=== PATIENT | male | born 1945 | race Caucasian/White ===

== ENCOUNTER → 2016-09-08 | Outpatient (CLI) | payer MEDICARE ==
[2016-09-08 08:21] LABS: Basophils % (A) 0 %; CH 33.4; CHCM 34.1; Eosinophils # (A) 0.1 k/uL (0-0.7); Eosinophils % (A) 1 %; HCT 46.5 % (39.0-53.0); HDW 2.55; HGB 15.3 gm/dL (13.0-17.5); Luc # (Auto) 0.05; Luc % (Auto) 1; Lymphocytes # (A) 1.5 k/uL (1.0-4.8); Lymphocytes % (A) 27 %; MCH 32.4 pg (25.0-35.0); MCHC 32.9 g/dL (31.0-37.0); MCV 98.5 fL (80.0-100.0); Monocytes # (A) 0.3 k/uL (0-1.0); Monocytes % (A) 5 %; Neutrophils # (A) 3.7 k/uL (1.3-7.7); Neutrophils % (A) 65 %; RBC 4.72 m/uL (4.30-5.90); RDW 13.8 % (11.5-15.5); WBC 5.6 k/uL (3.8-10.6); WBC (Perox) 5.31
[2016-09-08 10:46] LABS: Erythrocyte Sedimentation Rate 8 mm/hr (0-15)
== END | disposition home or self-care (01) ==
LOC: LABWHC1 07:51
PROVIDERS: ATTEND Internal Medicine Infectious Disease
DX: M86.271 Subacute osteomyelitis, right ankle and foot (principal)
CPT/HCPCS: 36415; 85025; 85652; 86140

== ENCOUNTER → 2017-08-19 | Outpatient (CLI) | payer MEDICARE ==
[2017-08-19 08:07] LABS: Basophils % (A) 0 %; Eosinophils # (A) 0.1 k/uL (0-0.7); Eosinophils % (A) 2 %; HCT 42.1 % (39.0-53.0); HGB 14.4 gm/dL (13.0-17.5); Lymphocytes # (A) 1.4 k/uL (1.0-4.8); Lymphocytes % (A) 28 %; MCH 31.9 pg (25.0-35.0); MCHC 34.3 g/dL (31.0-37.0); Mean Platelet Volume 7.1; Monocytes # (A) 0.3 k/uL (0-1.0); Monocytes % (A) 6 %; Neutrophils # (A) 3.1 k/uL (1.3-7.7); Neutrophils % (A) 62 %; Platelet Count 195 k/uL (150-450); RBC 4.52 m/uL (4.30-5.90); RDW 13.2 % (11.5-15.5); WBC 4.9 k/uL (3.8-10.6)
[2017-08-19 08:43] LABS: Anion Gap 14 mmol/L; Blood Urea Nitrogen 28 mg/dL (9-20); Calcium 9.3 mg/dL (8.4-10.2); Carbon Dioxide 23 mmol/L (22-30); Chloride 104 mmol/L (98-107); Glucose 143 mg/dL (74-99); Potassium 4.5 mmol/L (3.5-5.1); Sodium 141 mmol/L (137-145)
[2017-08-19 08:52] LABS: Erythrocyte Sedimentation Rate 12 mm/hr (0-15)
== END | disposition home or self-care (01) ==
LOC: LABWHC1 07:27
PROVIDERS: ATTEND Internal Medicine Infectious Disease
DX: R79.89 Other specified abnormal findings of blood chemistry (principal)
CPT/HCPCS: 36415; 80048; 85025; 85652

== ENCOUNTER → 2018-02-28 | Outpatient (CLI) | payer MEDICARE ==
[2018-02-28 11:30] LABS: Basophils % (A) 0 %; Eosinophils # (A) 0.1 k/uL (0-0.7); Eosinophils % (A) 1 %; HCT 45.1 % (39.0-53.0); Lymphocytes # (A) 1.2 k/uL (1.0-4.8); Lymphocytes % (A) 23 %; MCH 31.7 pg (25.0-35.0); MCHC 33.3 g/dL (31.0-37.0); MCV 95.2 fL (80.0-100.0); Mean Platelet Volume 6.6; Monocytes # (A) 0.2 k/uL (0-1.0); Monocytes % (A) 4 %; Neutrophils # (A) 3.6 k/uL (1.3-7.7); Neutrophils % (A) 71 %; Platelet Count 194 k/uL (150-450); RBC 4.74 m/uL (4.30-5.90); RDW 13.2 % (11.5-15.5); WBC 5.1 k/uL (3.8-10.6)
[2018-02-28 13:23] LABS: Erythrocyte Sedimentation Rate 8 mm/hr (0-15)
[2018-02-28 18:14] LABS: Albumin 4.5 g/dL (3.80-4.90); Albumin/Globulin Ratio 2.65 (1.20-2.10); Anion Gap 7.1 mmol/L (4.00-12.00); Calcium 9.3 mg/dL (8.7-10.3); Carbon Dioxide 24.9 mmol/L (21.6-31.8); Globulin 1.7 g/dL (2.1-3.7); Potassium 4.6 mmol/L (3.5-5.5); Total Bilirubin 0.7 mg/dL (0.2-1.2); Total Protein 6.2 g/dL (6.2-8.2)
== END ==
LOC: LABWHC1 09:53
PROVIDERS: ATTEND Internal Medicine Infectious Disease
DX: M19.90 Unspecified osteoarthritis, unspecified site (principal); Z87.39 Personal history of other diseases of the musculoskeletal system and connective tissue
CPT/HCPCS: 36415; 80053; 85025; 85652

== ENCOUNTER → 2018-08-29 | Outpatient (CLI) | payer MEDICARE ==
[2018-08-29 08:35] LABS: Basophils % (A) 0 %; Eosinophils # (A) 0.1 k/uL (0-0.7); Eosinophils % (A) 2 %; HCT 40.4 % (39.0-53.0); HGB 13.3 gm/dL (13.0-17.5); Lymphocytes # (A) 1.3 k/uL (1.0-4.8); Lymphocytes % (A) 23 %; MCH 30.6 pg (25.0-35.0); MCHC 32.9 g/dL (31.0-37.0); MCV 92.9 fL (80.0-100.0); Mean Platelet Volume 7.1; Monocytes # (A) 0.3 k/uL (0-1.0); Monocytes % (A) 5 %; Neutrophils # (A) 3.9 k/uL (1.3-7.7); Neutrophils % (A) 69 %; Platelet Count 230 k/uL (150-450); RBC 4.35 m/uL (4.30-5.90); WBC 5.7 k/uL (3.8-10.6)
[2018-08-29 10:11] LABS: Erythrocyte Sedimentation Rate 14 mm/hr (0-15)
[2018-08-29 16:56] LABS: African American GFR (CKD) 97.2 (60.0-200.0); Albumin 4.5 g/dL (3.80-4.90); Albumin/Globulin Ratio 2.65 (1.60-3.17); Anion Gap 10.5 mmol/L (4.00-12.00); Calcium 9.3 mg/dL (8.7-10.3); Carbon Dioxide 26.5 mmol/L (21.6-31.8); Globulin 1.7 g/dL (1.6-3.3); Total Bilirubin 0.6 mg/dL (0.3-1.2); Total Protein 6.2 g/dL (6.2-8.2)
== END | disposition home or self-care (01) ==
LOC: LABWHC1 08:03
PROVIDERS: ATTEND Internal Medicine Infectious Disease
DX: M19.90 Unspecified osteoarthritis, unspecified site (principal); Z87.39 Personal history of other diseases of the musculoskeletal system and connective tissue
CPT/HCPCS: 36415; 80053; 85025; 85652

== ENCOUNTER → 2019-02-27 | Outpatient (CLI) | payer MEDICARE ==
[2019-02-27 09:11] LABS: Basophils % (A) 0 %; Eosinophils # (A) 0.1 k/uL (0-0.7); Eosinophils % (A) 1 %; HCT 43.1 % (39.0-53.0); HGB 14.8 gm/dL (13.0-17.5); Lymphocytes # (A) 1.6 k/uL (1.0-4.8); Lymphocytes % (A) 29 %; MCH 31.9 pg (25.0-35.0); MCHC 34.3 g/dL (31.0-37.0); MCV 92.9 fL (80.0-100.0); Mean Platelet Volume 6.3; Monocytes # (A) 0.3 k/uL (0-1.0); Monocytes % (A) 5 %; Neutrophils # (A) 3.4 k/uL (1.3-7.7); Neutrophils % (A) 63 %; Platelet Count 208 k/uL (150-450); RBC 4.63 m/uL (4.30-5.90); RDW 12.6 % (11.5-15.5); WBC 5.3 k/uL (3.8-10.6)
[2019-02-27 09:39] LABS: Erythrocyte Sedimentation Rate 8 mm/hr (0-15)
[2019-02-27 17:57] LABS: ALT 65 U/L (10-49); AST 56 U/L (14-35); Alkaline Phosphatase 124 U/L (41-126); C Reactive Protein <0.4 mg/dL (0.0-0.8); Calcium 9.5 mg/dL (8.7-10.3); Carbon Dioxide 27.2 mmol/L (21.6-31.8); Chloride 100 mmol/L (96-109); Globulin 1.8 g/dL (1.6-3.3); Glucose 159 mg/dL (70-110); Non-African American GFR(CKD) 73.3 (60.0-200.0); Potassium 4.2 mmol/L (3.5-5.5); Sodium 137 mmol/L (135-145); Total Bilirubin 0.7 mg/dL (0.3-1.2); Total Protein 6.3 g/dL (6.2-8.2)
== END | disposition home or self-care (01) ==
LOC: LABWHC1 08:10
PROVIDERS: ATTEND Internal Medicine Infectious Disease
DX: M86.3 Chronic multifocal osteomyelitis (principal); Z88.2 Allergy status to sulfonamides
CPT/HCPCS: 36415; 80053; 85025; 85652; 86140

== ENCOUNTER → 2019-09-11 | Outpatient (CLI) | payer MEDICARE ==
[2019-09-11 10:35] LABS: Basophils % (A) 0 %; Eosinophils # (A) 0.1 k/uL (0-0.7); Eosinophils % (A) 1 %; HCT 42.8 % (39.0-53.0); HGB 14.7 gm/dL (13.0-17.5); Lymphocytes # (A) 1.1 k/uL (1.0-4.8); Lymphocytes % (A) 22 %; MCH 32.9 pg (25.0-35.0); MCHC 34.3 g/dL (31.0-37.0); Mean Platelet Volume 6.9; Monocytes # (A) 0.2 k/uL (0-1.0); Monocytes % (A) 4 %; Neutrophils # (A) 3.6 k/uL (1.3-7.7); Neutrophils % (A) 72 %; Platelet Count 181 k/uL (150-450); RBC 4.46 m/uL (4.30-5.90); RDW 13.7 % (11.5-15.5)
[2019-09-11 15:00] LABS: Erythrocyte Sedimentation Rate 9 mm/hr (0-15)
[2019-09-11 16:04] LABS: ALT 29 U/L (10-49); AST 31 U/L (14-35); Albumin/Globulin Ratio 2.37 (1.60-3.17); Alkaline Phosphatase 103 U/L (41-126); C Reactive Protein <0.4 mg/dL (0.0-0.8); Calcium 9.2 mg/dL (8.7-10.3); Carbon Dioxide 28.7 mmol/L (21.6-31.8); Chloride 106 mmol/L (96-109); Globulin 1.9 g/dL (1.6-3.3); Glucose 201 mg/dL (70-110); Non-African American GFR(CKD) 73.3 (60.0-200.0); Potassium 4.2 mmol/L (3.5-5.5); Sodium 142 mmol/L (135-145); Total Bilirubin 0.9 mg/dL (0.3-1.2); Total Protein 6.4 g/dL (6.2-8.2)
== END ==
LOC: LABWHC1 09:28
PROVIDERS: ATTEND Internal Medicine Infectious Disease
DX: M00.9 Pyogenic arthritis, unspecified (principal)
CPT/HCPCS: 36415; 80053; 85025; 85652; 86140

== ENCOUNTER → 2020-02-22 | Outpatient (CLI) | payer MEDICARE ==
[2020-02-22 10:08] LABS: Basophils % (A) 0 %; Eosinophils # (A) 0.1 k/uL (0-0.7); Eosinophils % (A) 2 %; HCT 44.4 % (39.0-53.0); HGB 15.2 gm/dL (13.0-17.5); Lymphocytes # (A) 1.1 k/uL (1.0-4.8); Lymphocytes % (A) 21 %; MCH 32.4 pg (25.0-35.0); MCHC 34.3 g/dL (31.0-37.0); MCV 94.4 fL (80.0-100.0); Mean Platelet Volume 6.5; Monocytes # (A) 0.3 k/uL (0-1.0); Monocytes % (A) 5 %; Neutrophils # (A) 3.8 k/uL (1.3-7.7); Neutrophils % (A) 71 %; Platelet Count 193 k/uL (150-450); RDW 12.7 % (11.5-15.5); WBC 5.3 k/uL (3.8-10.6)
[2020-02-22 12:55] LABS: Erythrocyte Sedimentation Rate 5 mm/hr (0-15)
[2020-02-22 16:03] LABS: ALT 23 U/L (10-49); AST 18 U/L (14-35); African American GFR (CKD) 84.4 (60.0-200.0); Albumin/Globulin Ratio 2.37 (1.60-3.17); Alkaline Phosphatase 116 U/L (41-126); C Reactive Protein <0.4 mg/dL (0.0-0.8); Calcium 9.5 mg/dL (8.7-10.3); Carbon Dioxide 27.7 mmol/L (21.6-31.8); Chloride 104 mmol/L (96-109); Globulin 1.9 g/dL (1.6-3.3); Glucose 196 mg/dL (70-110); Non-African American GFR(CKD) 72.8 (60.0-200.0); Potassium 4.3 mmol/L (3.5-5.5); Sodium 140 mmol/L (135-145); Total Bilirubin 0.8 mg/dL (0.2-1.2); Total Protein 6.4 g/dL (6.2-8.2)
== END | disposition home or self-care (01) ==
LOC: LABWHC1 08:40
PROVIDERS: ATTEND Internal Medicine Infectious Disease
DX: M19.90 Unspecified osteoarthritis, unspecified site (principal)
CPT/HCPCS: 36415; 80053; 85025; 85652; 86140

== ENCOUNTER → 2020-08-14 | Outpatient (CLI) | payer MEDICARE ==
[2020-08-14 16:10] LABS: Basophils # (A) 0.02 X 10*3/uL (0.00-0.10); Basophils % (A) 0.4 %; Eosinophils # (A) 0.05 X 10*3/uL (0.04-0.35); Eosinophils % (A) 0.9 %; HCT 45.8 % (39.6-50.0); HGB 15.4 g/dL (13.0-17.0); Lymphocytes # (A) 1.33 X 10*3/uL (0.90-5.00); Lymphocytes % (A) 23.9 %; MCH 31.9 pg (27.0-32.0); MCHC 33.6 g/dL (32.0-37.0); MCV 94.8 fL (80.0-97.0); Mean Platelet Volume 9.4 fL (9.5-12.2); Monocytes # (A) 0.37 X 10*3/uL (0.20-1.00); Monocytes % (A) 6.6 %; Neutrophils # (A) 3.77 X 10*3/uL (1.80-7.70); Neutrophils % (A) 67.7 %; Platelet Count 187 X 10*3/uL (140-440); RBC 4.83 X 10*6/uL (4.40-5.60); RDW 13.1 % (11.5-14.5); WBC 5.57 X 10*3/uL (4.50-10.00)
[2020-08-14 17:46] LABS: Erythrocyte Sedimentation Rate 7 mm/Hr (0-20)
[2020-08-14 22:47] LABS: ALT 21 U/L (10-49); AST 17 U/L (14-35); African American GFR (CKD) 84.4 (60.0-200.0); Albumin/Globulin Ratio 2.19 (1.60-3.17); Alkaline Phosphatase 110 U/L (41-126); C Reactive Protein <0.4 mg/dL (0.0-0.8); Calcium 9.8 mg/dL (8.7-10.3); Carbon Dioxide 22.2 mmol/L (21.6-31.8); Chloride 107 mmol/L (96-109); Globulin 2.1 g/dL (1.6-3.3); Glucose 126 mg/dL (70-110); Non-African American GFR(CKD) 72.8 (60.0-200.0); Potassium 4.7 mmol/L (3.5-5.5); Sodium 141 mmol/L (135-145); Total Protein 6.7 g/dL (6.2-8.2)
== END ==
LOC: LABWHC1 07:53
PROVIDERS: ATTEND Internal Medicine Infectious Disease
DX: M19.90 Unspecified osteoarthritis, unspecified site (principal)
CPT/HCPCS: 36415; 80053; 85025; 85652; 86140

== ENCOUNTER → 2021-02-19 | Outpatient (CLI) | payer MEDICARE ==
[2021-02-19 15:37] LABS: Basophils # (A) 0.01 X 10*3/uL (0.00-0.10); Basophils % (A) 0.2 %; Eosinophils # (A) 0.09 X 10*3/uL (0.04-0.35); Eosinophils % (A) 1.9 %; HCT 43.8 % (39.6-50.0); HGB 14.7 g/dL (13.0-17.0); Lymphocytes # (A) 1.11 X 10*3/uL (0.90-5.00); Lymphocytes % (A) 23.7 %; MCH 31.8 pg (27.0-32.0); MCHC 33.6 g/dL (32.0-37.0); MCV 94.8 fL (80.0-97.0); Mean Platelet Volume 9.7 fL (9.5-12.2); Monocytes # (A) 0.32 X 10*3/uL (0.20-1.00); Monocytes % (A) 6.8 %; Neutrophils # (A) 3.12 X 10*3/uL (1.80-7.70); Neutrophils % (A) 66.8 %; Platelet Count 173 X 10*3/uL (140-440); RBC 4.62 X 10*6/uL (4.40-5.60); RDW 13.6 % (11.5-14.5); WBC 4.68 X 10*3/uL (4.50-10.00)
[2021-02-19 16:04] LABS: African American GFR (CKD) 83.8 (60.0-200.0); Anion Gap 16.6 mmol/L (10.00-18.00); BUN/Creat Ratio 21.4 Ratio (12.00-20.00); Blood Urea Nitrogen 21.4 mg/dL (9.0-27.0); C Reactive Protein 0.5 mg/dL (0.00-0.80); Calcium 9.3 mg/dL (8.7-10.3); Carbon Dioxide 20.4 mmol/L (20.0-27.5); Non-African American GFR(CKD) 72.3 (60.0-200.0); Potassium 4.4 mmol/L (3.5-5.5)
[2021-02-19 18:04] LABS: Erythrocyte Sedimentation Rate 10 mm/Hr (0-20)
== END | disposition home or self-care (01) ==
LOC: LABWHC1 08:06
PROVIDERS: ATTEND Internal Medicine Infectious Disease
DX: M89.8X7 Other specified disorders of bone, ankle and foot (principal)
CPT/HCPCS: 36415; 80048; 85025; 85652; 86140

== ENCOUNTER → 2021-08-15 | Outpatient (CLI) | payer MEDICARE ==
[2021-08-15 14:39] LABS: Basophils # (A) 0.02 X 10*3/uL (0.00-0.10); Basophils % (A) 0.4 %; Eosinophils # (A) 0.06 X 10*3/uL (0.04-0.35); Eosinophils % (A) 1.1 %; HCT 42.4 % (39.6-50.0); HGB 14.7 g/dL (13.0-17.0); Immature Grans, Automated 0.4 %; Lymphocytes % (A) 18.9 %; MCH 32.4 pg (27.0-32.0); MCHC 34.7 g/dL (32.0-37.0); MCV 93.4 fL (80.0-97.0); Mean Platelet Volume 9.4 fL (9.5-12.2); Monocytes # (A) 0.34 X 10*3/uL (0.20-1.00); Monocytes % (A) 6.4 %; NRBC Per 100 WBC 0 /100 WBCS (0.0-0.0); Neutrophils # (A) 3.84 X 10*3/uL (1.80-7.70); Neutrophils % (A) 72.8 %; Platelet Count 174 X 10*3/uL (140-440); RBC 4.54 X 10*6/uL (4.40-5.60); RDW 12.9 % (11.5-14.5); WBC 5.28 X 10*3/uL (4.50-10.00)
[2021-08-15 14:57] LABS: African American GFR (CKD) 83.8 (60.0-200.0); Anion Gap 14.3 mmol/L (10.00-18.00); BUN/Creat Ratio 20.7 Ratio (12.00-20.00); Blood Urea Nitrogen 20.7 mg/dL (9.0-27.0); C Reactive Protein 0.4 mg/dL (0.00-0.80); Calcium 9.3 mg/dL (8.7-10.3); Carbon Dioxide 25.7 mmol/L (20.0-27.5); Non-African American GFR(CKD) 72.3 (60.0-200.0); Potassium 3.7 mmol/L (3.5-5.5)
[2021-08-15 15:49] LABS: Erythrocyte Sedimentation Rate 12 mm/Hr (0-20)
== END | disposition home or self-care (01) ==
LOC: LABWHC1 07:47
PROVIDERS: ATTEND Internal Medicine Infectious Disease
DX: B67 Echinococcosis (principal)
CPT/HCPCS: 36415; 80048; 85025; 85652; 86140

== ENCOUNTER 2021-09-08 08:32 | Emergency (ER) | payer MEDICARE ==
[2021-09-08 08:39] VITALS: RESP 18
--- NOTE | 2021-09-08 08:59 | ED ---
General Adult HPI - General Chief complaint: Back Pain/Injury Stated complaint: fall Time Seen by Provider: 09/08/21 08:35 Source: patient, RN notes reviewed, old records reviewed Mode of arrival: ambulatory Limitations: no limitations - History of Present Illness Initial comments: 76-year-old presenting with mid back pain after a fall which occurred yesterday. Patient was in a lawn chair, had fall off of an 18 inch DAC onto his back. There may have been minor head injury, no anticoagulation, no loss consciousness. Patient denies extremity injury. - Related Data Home Medications Medication Instructions Recorded Confirmed Aspirin EC [Ecotrin Low Dose] 81 mg PO DAILY 09/08/21 09/08/21 Atorvastatin [Lipitor] 40 mg PO HS 09/08/21 09/08/21 Chlorthalidone 50 mg PO DAILY 09/08/21 09/08/21 Glimepiride [Amaryl] 4 mg PO [id number] 09/08/21 09/08/21 Metoprolol Succinate [Toprol XL] 150 mg PO DAILY 09/08/21 09/08/21 Multivitamins, Thera [Multivitamin 1 tab PO DAILY 09/08/21 09/08/21 (formulary)] Olmesartan [Benicar] 40 mg PO DAILY 09/08/21 09/08/21 Lachine-3/Dha/Epa/Fish Oil [Fish Oil 1 cap PO DAILY 09/08/21 09/08/21 1,000 mg Softgel] metFORMIN HCL 1,000 mg PO BID 09/08/21 09/08/21 Allergies Allergy/AdvReac Type Severity Reaction Status Date / Time Sulfa (Sulfonamide Allergy Unknown Verified 09/08/21 10:20 Antibiotics) Childhood Review of Systems ROS Statement: Those systems with pertinent positive or pertinent negative responses have been documented in the HPI. ROS Other: All systems not noted in ROS Statement are negative. Past Medical History Past Medical History: Diabetes Mellitus, Hyperlipidemia, Hypertension History of Any Multi-Drug Resistant Organisms: None Reported Past Surgical History: Orthopedic Surgery, Tonsillectomy Past Psychological History: No Psychological Hx Reported Smoking Status: Never smoker Past Alcohol Use History: None Reported Past Drug Use History: None Reported General Exam Limitations: no limitations General appearance: alert, in no apparent distress Head exam: Present: atraumatic, normocephalic Eye exam: Present: normal appearance, PERRL ENT exam: Present: normal exam Neck exam: Present: normal inspection. Absent: tenderness, meningismus Respiratory exam: Present: normal lung sounds bilaterally. Absent: respiratory distress, wheezes Cardiovascular Exam: Present: regular rate, normal rhythm GI/Abdominal exam: Present: soft. Absent: distended, tenderness Extremities exam: Present: normal inspection, normal capillary refill. Absent: calf tenderness Back exam: Present: vertebral tenderness (Midthoracic) Neurological exam: Present: alert, oriented X3, CN II-XII intact. Absent: motor sensory deficit Psychiatric exam: Present: normal affect, normal mood Skin exam: Present: warm, dry, intact. Absent: cyanosis, diaphoretic Course Vital Signs 09/08/21 08:33 Temperature 97.9 F Pulse Rate 76 Respiratory 18 Rate Blood Pressure 192/86 O2 Sat by Pulse 97 Oximetry - Reevaluation(s) Reevaluation #1: 09/08/21 12:02 Plain transfer secondary to delay in imaging. Medical Decision Making - Medical Decision Making 76-year-old male with upper back pain from a fall which occurred yesterday afternoon around 5 PM. There was minor head trauma without loss consciousness. Workup was initiated emergency department. Including chest x-ray, thoracic spine x-ray and CT brain and C-spine. The chest and thoracic spine x-rays are negative for traumatic injury. Head CT shows bifrontal subdural and right traumatic subarachnoid hemorrhage without midline shift. Patient is well- appearing with minimal headache, no focal findings. He will require observation at a facility with neurosurgery available. I did discuss case with [facility] ER physician Dr. Cha who will accept transfer. IV established and laboratory studies are pending currently. Critical Care Time Critical Care Time: Yes Total Critical Care Time: 35 Disposition Clinical Impression: Subdural hematoma, Subarachnoid hematoma Disposition: OTHER INSTITUTION NOT DEFINED Condition: Serious Is patient prescribed a controlled substance at d/c from ED?: No Referrals: Harsh Lorenz DO [Primary Care Provider] - 1-2 days Time of Disposition: 12:03 - Out of Hospital Transfer - Req. Specs Out of Hospital Transfer - Requested Specifics: Other Emergency Center (Transfer to [facility])
--- NOTE | 2021-09-08 10:26 | CT ---
EXAMINATION TYPE: CT brain christiane rahman DATE OF EXAM: 09/08/2021 COMPARISON: None available HISTORY: Fall CT DLP: 1949.3 mGycm Automated exposure control for dose reduction was used. TECHNIQUE: CT scan of the head and cervical spine are performed without contrast. FINDINGS: Brain: Left frontoparietal isodense to slightly hyperdense subdural hematoma measuring up to 10 mm, possibly representing acute to subacute hematoma. Smaller right frontoparietal heterogeneous subdural hematom a measuring up to 6 mm, possibly representing acute on top of chronic hematoma. Associated scattered areas of subarachnoid hemorrhage seen in the right frontal, right parietal and right occipital lobes. Suspected minimal subdural bleeding along the tentorium as well as along the posterior aspect of the falx. No gross acute cortical infarct. No midline shift, herniation or ventriculomegaly. Unremarkable basal cisterns, sella and CP angles. No gross space-occupying lesion. No gross orbital abnormality. Clear visualized paranasal sinuses and mastoid air cells. No definite acute calvarial bone fracture identif ied. Cervical spine: Preserved cervical curvature. No significant anterolisthesis or retrolisthesis. No definite vertebral body collapse or acute displaced fracture. Unremarkable atlantoaxial and atlantooccipital articulati ons. No facet dislocation. Degenerative changes of the cervical and upper thoracic spine with multilevel opposing endplate osteo phytosis, extensive anterior and posterior longitudinal calcification, bridging osteophytosis with mu ltilevel facet, costovertebral costotransverse fusion. This could be related to ankylosing spondyliti s. Other spondyloarthropathy cannot be excluded. Marked degenerative/arthritic changes of the sternoclavicular joints. Multilevel neural foraminal jyothi nosis. Slightly prominent right lingual tonsil. Arterial atherosclerotic calcifications. Fatty infilt ration of the neck muscles, myositis cannot be excluded. COPD changes are seen in the visualized port ion of the lungs. No paraspinal lesion. IMPRESSION: 1. Intracranial subarachnoid hemorrhage and subdural hematomas as detailed above, possibly posttrauma tic. Recommend clinical correlation and neurosurgery consultation. 2. No acute traumatic bony injury of the cervical spine. 3. Suspected ankylosing spondylitis versus other spondyloarthropathy, for clinical correlation and fu rther workup if not already known. Other multiple findings as described above.
--- NOTE | 2021-09-08 11:16 | XR ---
EXAMINATION TYPE: XR chest 2V DATE OF EXAM: 09/08/2021 COMPARISON: NONE HISTORY: Trauma and pain TECHNIQUE: Frontal and lateral views of the chest are obtained on 3 images. FINDINGS: There is no focal air space opacity, pleural effusion, or pneumothorax seen. The cardiac silhouette size is within normal limits. Biapical pleural thickening is present. There is dense. The osseous structures are intact and there is a spinal curvature, suspect ankylosing spondylitis. IMPRESSION: No acute cardiopulmonary process.
--- NOTE | 2021-09-08 11:34 | XR ---
EXAMINATION TYPE: XR thoracic spine 2V DATE OF EXAM: 09/08/2021 COMPARISON: None HISTORY: Pain, fall TECHNIQUE: 4 view thoracic spine FINDINGS: There are 12 thoracic type vertebral bodies. Pedicles are intact. Scoliosis is present with convexity to the left centered at the T9 level. IMPRESSION: 1. No acute osseous abnormalities thoracic spine
[2021-09-08 12:06] LABS: Basophils % (A) 0 %; Eosinophils # (A) 0.1 k/uL (0-0.7); Eosinophils % (A) 1 %; HCT 43.5 % (39.0-53.0); HGB 15.3 gm/dL (13.0-17.5); Lymphocytes % (A) 11 %; MCHC 35.1 g/dL (31.0-37.0); MCV 96.9 fL (80.0-100.0); Mean Platelet Volume 7.2; Monocytes # (A) 0.4 k/uL (0-1.0); Monocytes % (A) 5 %; Neutrophils # (A) 7.3 k/uL (1.3-7.7); Neutrophils % (A) 83 %; Platelet Count 191 k/uL (150-450); RBC 4.49 m/uL (4.30-5.90); RDW 13.6 % (11.5-15.5); WBC 8.8 k/uL (3.8-10.6)
[2021-09-08] MEDS ORDERED: HYDROmorphone 0.5 MG/0.5 ML SYRINGE IVP STA (12:10)
[2021-09-08 12:17] LABS: INR 0.9 (<1.2); Partial Thromboplastin Time 24.7 sec (22.0-30.0); Prothrombin Time 10.3 sec (9.0-12.0)
[2021-09-08 12:32] LABS: Albumin 4.5 g/dL (3.5-5.0); Calcium 9.7 mg/dL (8.4-10.2); Potassium 4.1 mmol/L (3.5-5.1); Total Protein 7.2 g/dL (6.3-8.2)
[2021-09-08 12:57] LABS: Appearance,Urine Clear (Clear); Bacteria,Urine Occasional /hpf; Bilirubin,Urine Negative (Negative); Blood,Urine Trace (Negative); Color,Urine Yellow; Glucose,Urine (UA) Trace (Negative); Ketones,Urine Negative (Negative); Leukocyte Esterase,Urine Trace (Negative); Mucus,Urine Rare /hpf; Nitrite,Urine Negative (Negative); PH, Urine 5.5 (5.0-8.0); Protein,Urine 2+ (Negative); RBC,Urine 2 /hpf (0-5); Specific Gravity,Urine 1.019 (1.001-1.035); Squamous Epithelial Cell,Urine <1 /hpf (0-4); Urobilinogen,Urine <2.0 mg/dL (<2.0); WBC,Urine 14 /hpf (0-5)
[2021-09-08 13:41] VITALS: BP 167/87; PULSE 64; TEMP 97.5
== END 2021-09-08 13:20 | disposition other institution (70) ==
LOC: EC 08:32
DX: S06.5X9A Traumatic subdural hemorrhage with loss of consciousness of unspecified duration, initial encounter (principal); E11.9 Type 2 diabetes mellitus without complications; E78.5 Hyperlipidemia, unspecified; I10 Essential (primary) hypertension; Z88.2 Allergy status to sulfonamides; W19.XXXA Unspecified fall, initial encounter
CPT/HCPCS: 36415; 80053; 85025; 85610; 85730; 81001; 72070; 71046; 72125; 70450; 96374; 99285; J1170

== ENCOUNTER → 2022-08-20 | Outpatient (CLI) | payer MEDICARE ==
[2022-08-20 16:02] LABS: Basophils # (A) 0.01 X 10*3/uL (0.00-0.10); Basophils % (A) 0.2 %; Eosinophils # (A) 0.03 X 10*3/uL (0.04-0.35); Eosinophils % (A) 0.5 %; HCT 42.4 % (39.6-50.0); Immature Grans, Automated 0.2 %; Lymphocytes # (A) 1.44 X 10*3/uL (0.90-5.00); Lymphocytes % (A) 25.3 %; MCH 32.9 pg (27.0-32.0); MCHC 35.4 g/dL (32.0-37.0); Mean Platelet Volume 9.2 fL (9.5-12.2); Monocytes # (A) 0.41 X 10*3/uL (0.20-1.00); Monocytes % (A) 7.2 %; NRBC Per 100 WBC 0 /100 WBCS (0.0-0.0); Neutrophils # (A) 3.79 X 10*3/uL (1.80-7.70); Neutrophils % (A) 66.6 %; Platelet Count 152 X 10*3/uL (140-440); RBC 4.56 X 10*6/uL (4.40-5.60); RDW 13.1 % (11.5-14.5); WBC 5.69 X 10*3/uL (4.50-10.00)
[2022-08-20 16:07] LABS: African American GFR (CKD) 94.5 (60.0-200.0); BUN/Creat Ratio 24.89 Ratio (12.00-20.00); Blood Urea Nitrogen 22.4 mg/dL (9.0-27.0); C Reactive Protein <0.30 mg/dL (0.00-0.80); Calcium 9.8 mg/dL (8.7-10.3); Carbon Dioxide 27.4 mmol/L (20.0-27.5); Chloride 100 mmol/L (96-109); Glucose 135 mg/dL (70-110); Non-African American GFR(CKD) 81.5 (60.0-200.0); Potassium 3.8 mmol/L (3.5-5.5); Sodium 140 mmol/L (135-145)
[2022-08-20 16:13] LABS: Erythrocyte Sedimentation Rate 7 mm/Hr (0-20)
== END | disposition home or self-care (01) ==
LOC: LABWHC1 10:40
PROVIDERS: ATTEND Internal Medicine Infectious Disease
DX: M01.X71 Direct infection of right ankle and foot in infectious and parasitic diseases classified elsewhere (principal)
CPT/HCPCS: 36415; 80048; 85025; 85652; 86140

== ENCOUNTER → 2023-05-24 | Outpatient (CLI) | payer MEDICARE ==
[2023-05-24 11:35] LABS: Blood Urea Nitrogen 22.3 mg/dL (9.0-27.0); C Reactive Protein <0.30 mg/dL (0.00-0.80); Calcium 9.9 mg/dL (8.7-10.3); Carbon Dioxide 30.1 mmol/L (21.6-31.8); Chloride 101 mmol/L (96-109); Glucose 154 mg/dL (70-110); Potassium 4.2 mmol/L (3.5-5.5); Sodium 143 mmol/L (135-145)
[2023-05-24 11:38] LABS: Basophils # (A) 0.01 X 10*3/uL (0.00-0.10); Basophils % (A) 0.2 %; Eosinophils # (A) 0.07 X 10*3/uL (0.04-0.35); Eosinophils % (A) 1.4 %; HCT 45.3 % (39.6-50.0); HGB 15.4 g/dL (13.0-17.0); Lymphocytes # (A) 1.51 X 10*3/uL (0.90-5.00); Lymphocytes % (A) 30.3 %; MCH 31.5 pg (27.0-32.0); MCV 92.6 FL (80.0-97.0); Mean Platelet Volume 9.5 FL (9.5-12.2); NRBC Per 100 WBC 0 X 10*3/uL (0.00-0.01); Neutrophils # (A) 3.07 X 10*3/uL (1.80-7.70); Neutrophils % (A) 61.7 %; Platelet Count 155 X 10*3/uL (140-440); RBC 4.89 X 10*6/uL (4.40-5.60); RDW 13.2 % (11.5-14.5); WBC 4.98 X 10*3/uL (4.50-10.00)
[2023-05-24 11:52] LABS: Erythrocyte Sedimentation Rate 9 mm/Hr (0-20)
== END | disposition home or self-care (01) ==
LOC: LABWHC1 07:32
PROVIDERS: ATTEND Internal Medicine Infectious Disease
DX: Z00.00 Encounter for general adult medical examination without abnormal findings (principal); M86.171 Other acute osteomyelitis, right ankle and foot
CPT/HCPCS: 36415; 80048; 85025; 85652; 86140

== ENCOUNTER → 2024-02-28 | Outpatient (CLI) | payer MEDICARE ==
[2024-02-28 14:49] LABS: Basophils # (A) 0.02 X 10*3/uL (0.00-0.10); Basophils % (A) 0.3 %; Eosinophils # (A) 0.07 X 10*3/uL (0.04-0.35); Eosinophils % (A) 1.1 %; HCT 43.1 % (39.6-50.0); HGB 14.6 g/dL (13.0-17.0); Lymphocytes # (A) 1.55 X 10*3/uL (0.90-5.00); Lymphocytes % (A) 25.1 %; MCH 32.4 pg (27.0-32.0); MCHC 33.9 g/dL (32.0-37.0); MCV 95.6 FL (80.0-97.0); Mean Platelet Volume 9.8 FL (9.5-12.2); Monocytes % (A) 6.5 %; NRBC Per 100 WBC 0 X 10*3/uL (0.00-0.01); Neutrophils # (A) 4.09 X 10*3/uL (1.80-7.70); Neutrophils % (A) 66.4 %; Platelet Count 174 X 10*3/uL (140-440); RBC 4.51 X 10*6/uL (4.40-5.60); RDW 12.9 % (11.5-14.5); WBC 6.17 X 10*3/uL (4.50-10.00)
[2024-02-28 15:07] LABS: ALT 33 U/L (10-49); AST 35 U/L (14-35); Albumin 4.2 g/dL (3.8-4.9); Alkaline Phosphatase 110 U/L (41-126); BUN/Creat Ratio 23.36 Ratio (12.00-20.00); Blood Urea Nitrogen 25.7 mg/dL (9.0-27.0); C Reactive Protein <0.30 mg/dL (0.00-0.80); Calcium 9.1 mg/dL (8.7-10.3); Carbon Dioxide 27.6 mmol/L (21.6-31.8); Chloride 102 mmol/L (96-109); Globulin 2.1 g/dL (1.6-3.3); Glucose 164 mg/dL (70-110); Sodium 142 mmol/L (135-145); Total Bilirubin 0.8 mg/dL (0.3-1.2); Total Protein 6.3 g/dL (6.2-8.2)
[2024-02-28 16:19] LABS: Erythrocyte Sedimentation Rate 9 mm/Hr (0-20)
== END | disposition home or self-care (01) ==
LOC: LABWHC1 08:25
PROVIDERS: ATTEND Internal Medicine Infectious Disease
DX: Z00.00 Encounter for general adult medical examination without abnormal findings (principal)
CPT/HCPCS: 36415; 80053; 85025; 85652; 86140

== ENCOUNTER → 2024-02-28 | Outpatient (CLI) | payer MEDICARE | END | disposition home or self-care (01) | LOC: LABWHC1 12:32 | PROVIDERS: ATTEND Internal Medicine Infectious Disease | DX: Z53.9 Procedure and treatment not carried out, unspecified reason (principal) ==